=== PATIENT | female | born 1940 | race Caucasian/White ===

== ENCOUNTER 2017-12-09 11:13 | Inpatient (IN) | payer MEDICARE ==
[~2017-12-09] VITALS: Ht 152.4 cm; Wt 69.5 kg
[~2017-12-09 11:13] MED LIST: ASPIRIN325 MG PO; BENTYL20 MG PO; CATAPRES0.1 MG PO; COLESTIPOL HCL1 GM PO; FLEXERIL PO; FLUOROMETHOLONE5 ML OU; GLIMEPIRIDE4 MG PO; HYDROCHLOROTHIA25 MG PO; LANTUS100 UNITS/ SQ; LASIX40 MG PO; LOMOTIL TABLET1 EACH PO; LOVENOX60 MG/0.6 SC; METHYLDOPA500 MG PO; METOCLOPRAMIDE10 MG PO; METOPROLOL SUC100 MG PO; NITROSTAT0.4 MG SL; NORCO 5-325 TA1 EACH PO; OMEPRAZOLE20 MG PO; PHENERGAN PO; PLAVIX75 MG PO; POTASSIUM CHLO20 ME1 PO; PROCRIT20000 UNIT INJ; REGADENOSON 0.4 MG/5 ML SYR IV ONE; SODIUM CHLORIDE 0.9% 250ML 250 ML ONE; TEARS PURE DROP15 ML OU; VERAPAMIL ER120 MG PO; XANAX PO; phenergan PO
--- NOTE | 2017-12-09 12:03 | Diagnostic Imaging Report ---
PROCEDURE:CHEST SINGLE (PORTABLE) 1150 hrs. COMPARISON:Chest x-ray 03/31/2010 INDICATIONS:LOW BLOOD PRESSURE FINDINGS: LUNGS:Diffuse groundglass airspace opacities throughout each lung. The pulmonary vasculature are prominent. CARDIOMEDIASTINAL SILHOUETTE:Enlarged and contains a coronary artery stent. Calcifications of the aortic arch are stable PLEURA:No pleural effusion or pneumothorax.. BONES:Suggestion of a healed fracture deformity of the proximal right humerus. There is a curvilinear bone fragment in the superior joint space. OTHER:Negative. CONCLUSION: Cardiomegaly and pulmonary vascular congestion. Diffuse groundglass airspace opacities are suggestive of edema. Dictated by: Vamshi Hickman M.D. on 12/09/2017 at 12:13 Electronically approved by: Vamshi Hickman M.D. on 12/09/2017 at 12:13
[2017-12-09 12:24] LABS: INR 1.22; PROTHROMBIN TIME 14.5 seconds (11.9-14.5)
[2017-12-09 12:25] LABS: PARTIAL THROMBOPLASTIN TIME 30.9 seconds (23.8-35.5)
[2017-12-09 12:33] LABS: ALBUMIN 2.9 g/dL (3.5-5.0); ALBUMIN/GLOBULIN RATIO 0.8 (0.8-2.0); ANION GAP 15.3 mmol/L (8-16); CALCIUM 8.2 mg/dL (8.4-10.2); CREATININE, SERUM 1.28 mg/dL (0.57-1.11); POTASSIUM 4.3 mmol/L (3.5-5.1)
[2017-12-09] MEDS ORDERED: VERAPAMIL ER120 MG PO (12:37)
[2017-12-09] MEDS ORDERED: DICYCLOMINE HCL20 MG PO (12:37)
[2017-12-09] MEDS ORDERED: QUESTRAN PACKET4 GM PO (12:37)
[2017-12-09] MEDS ORDERED: FERROUS SULFAT325 M1 PO (12:37)
[2017-12-09] MEDS ORDERED: FUROSEMIDE40 MG PO (12:37)
[2017-12-09] MEDS ORDERED: HYDRALAZINE HCL25 MG PO (12:37)
[2017-12-09] MEDS ORDERED: ULTRAM50 MG PO (12:37)
[2017-12-09] MEDS ORDERED: CITALOPRAM HBR20 MG PO (12:37)
[2017-12-09 12:39] LABS: CREATINE KINASE MB 2.1 ng/mL (0.00-5.00)
[2017-12-09 12:48] LABS: BASOPHILS % 0.2 % (0.0-1.0); EOSINOPHILS % 0.2 % (0.0-6.0); HEMATOCRIT 29.2 % (34.2-44.1); HEMOGLOBIN 9.1 g/dL (12.0-16.0); LYMPHOCYTES % 11.1 % (18.0-39.1); MEAN CORPUSCULAR HEMOGLOBIN 33.2 pg (28-32); MEAN CORPUSCULAR HGB CONC 31.2 g/dL (31-35); MEAN CORPUSCULAR VOLUME 106.6 fL (81-99); MONOCYTES # (AUTO) 0.5 (0.2-0.8); MONOCYTES % 5.9 % (4.4-11.3); NEUTROPHILS # (AUTO) 7.5 (2.1-6.9); NEUTROPHILS % 82.1 % (38.7-80.0); PLATELET COUNT 170 x10e3/uL (140-360); RED BLOOD COUNT 2.74 x10e6/uL (3.6-5.1)
[2017-12-09 12:55] LABS: BILIRUBIN,URINE NEGATIVE (NEGATIVE); KETONES,URINE NEGATIVE (NEGATIVE); LEUKOCYTE ESTERASE ,URINE TRACE (NEGATIVE); NITRITE,URINE NEGATIVE (NEGATIVE); URINE UROBILINOGEN 0.2 mg/dL (0.2 - 1)
[2017-12-09 12:58] LABS: CLARITY,URINE CLEAR (CLEAR); COLOR,URINE YELLOW (YELLOW); PROTEIN,URINE DIPSTICK 2+ (NEGATIVE)
[2017-12-09 13:18] LABS: RBC,URINE 0-5 /HPF (0-5)
[2017-12-09 13:22] LABS: BACTERIA,URINE RARE /HPF; EPITHELIAL CELLS,URINE FEW /LPF
[2017-12-09 13:23] LABS: RENAL EPITHELIAL CELLS,URINE MODERATE
[2017-12-09] MEDS ORDERED: NITROGLYCERIN 2% OINT 1 GM PKT TOP ONE (13:30)
[2017-12-09] MEDS ORDERED: SODIUM CHLORIDE 0.9% 500ML 500 ML IV ONE (13:30)
--- NOTE | 2017-12-09 13:40 | Cardiology Report ---
DATE OF STUDY: December 09, 2017 NUCLEAR GATED MYOCARDIAL PERFUSION SCAN Thank you, Dr. Heard, for this nuclear interpretation consultation. The stress test was supervised by Dr. Félix Arellano. I read only the nuclear part of the stress test. Lexiscan injected 0.4 mg intravenously as a stress agent. Myoview was injected 10 millicuries for resting protocol and 33 millicuries for stress protocol. NUCLEAR REPORT: Left ventricular ejection fraction is 50% to 55%. No evidence of wall-motion abnormality noted. No evidence of ischemia or scar noted. Normal study. Job#: [id number]
[2017-12-09] MEDS ORDERED: FUROSEMIDE INJ 10 MG/ML 4 ML VIAL IV ONE ×2 (14:15)
[2017-12-09] MEDS ORDERED: DEXTROSE 50% SYRINGE 50 ML IV PRN ×2 (19:15→23:15)
[2017-12-09] MEDS ORDERED: CEFTRIAXONE SOD 1 GM VIAL IV SCH (19:15)
[2017-12-09] MEDS ORDERED: LEVOFLOXACIN 500 MG TAB PO SCH (19:30)
--- OUTSIDE RECORDS SUMMARY | 2017-12-09 20:22 | XMS REPORT ---
Author Author [facility] Address Unknown Phone Unavailable Care Team Providers Care Shopping Inspector Name Role Phone ALEM ABERNATHY Unavailable Unavailable Problems This patient has no known problems. Allergies, Adverse Reactions, Alerts This patient has no known allergies or adverse reactions. Medications This patient has no known medications. Results Test Description Test Time Test Comments Text Results Atomic Results Result Comments CHEST SINGLE (PORTABLE) [place] [address] Patient Name: YVONNE ZULETA MR #: [id number] : 1940 Age/Sex: 77/F Req #: [id number] Adm Physician: Ordered by: ALEM ABERNATHY MD Report #: [id number] Location: ER Room/Bed: Procedure: [id number] DX/CHEST SINGLE (PORTABLE) Exam Date: 12/09/17 Exam Time: 1130 REPORT STATUS: Signed PROCEDURE: CHEST SINGLE (PORTABLE) 1150 hrs. COMPARISON: Chest x-ray 03/31/2010 INDICATIONS: LOW BLOOD PRESSURE FINDINGS: LUNGS: Diffuse groundglass airspace opacities throughout each lung. The pulmonary vasculature are prominent. CARDIOMEDIASTINAL SILHOUETTE: Enlarged and contains a coronary artery stent. Calcifications of the aortic arch are stable PLEURA: No pleural effusion or pneumothorax.. BONES: Suggestion of a healed fracture deformity of the proximal right humerus. There is a curvilinear bone fragment in the superior joint space. OTHER: Negative. CONCLUSION: Cardiomegaly and pulmonary vascular congestion. Diffuse groundglass airspace opacities are suggestive of edema. Dictated by: Jesi Brown M.D. on 12/09/2017 at 12:13 Electronically approved by: Jesi Brown M.D. on 12/09/2017 at 12:13 Dictated By: JESI BROWN MD [id number] Transcribed By: ANDREE on 12/09/17 1213 COPY TO: ALEM ABERNATHY MD
--- OUTSIDE RECORDS SUMMARY | 2017-12-09 20:22 | XMS REPORT | Clinical Summary ---
Author Author [facility] Address Unknown Phone Unavailable Care Team Providers Care Cupola Patcher Name Role Phone PCP Unavailable Allergies Active Allergy Reactions Severity Noted Date Comments Tiago Inhibitors High 04/03/2016 Amlodipine High 04/03/2016 Hydralazine High 04/03/2016 Meperidine High 04/03/2016 Morpholine Analogues High 04/03/2016 Penicillins High 04/03/2016 Current Medications Prescription Sig. Disp. Refills Start End Date Status Date dicyclomine (BENTYL) 20 Take 20 mg by mouth 4 Active mg tablet (four) times daily. metoclopramide HCl Take 10 mg by mouth 2 Active (REGLAN) 10 MG tablet (two) times daily. omeprazole (PRILOSEC) 40 Take 40 mg by mouth 2 Active MG capsule (two) times daily. colestipol (COLESTID) 5 Take 5 g by mouth 2 (two) Active gram granules times daily. aspirin 325 MG EC tablet Take 325 mg by mouth Active daily. cloNIDine HCl (CATAPRES) Take 0.1 mg by mouth 2 Active 0.1 MG tablet (two) times daily. metoprolol (LOPRESSOR) 50 Take 50 mg by mouth 3 Active MG tablet (three) times daily. potassium chloride SA Take 20 mEq by mouth 2 Active (K-DUR,KLOR-CON) 20 MEQ (two) times daily. tablet verapamil (CALAN) 40 MG Take 40 mg by mouth 2 Active tablet (two) times daily. furosemide (LASIX) 40 MG Take 40 mg by mouth 2 Active tablet (two) times daily. clopidogrel (PLAVIX) 75 Take 75 mg by mouth Active mg tablet daily. methyldopa (ALDOMET) 500 Take 500 mg by mouth 2 Active MG tablet (two) times daily. ALPRAZolam (XANAX) 0.25 Take 0.25 mg by mouth 3 Active MG tablet (three) times daily as needed for Anxiety. glimepiride (AMARYL) 4 MG Take 4 mg by mouth 2 Active tablet (two) times daily. diphenoxylate-atropine Take 1 tablet by mouth 4 Active (LOMOTIL) 2.5-0.025 mg (four) times daily as per tablet needed for Diarrhea. HYDROcodone-acetaminophen Take 1 tablet by mouth Active (VICODIN) 5-500 mg per every 6 (six) hours as tablet needed for Pain "25 mg" . promethazine (PHENERGAN) Take 25 mg by mouth as Active 25 MG tablet needed for Nausea. insulin glargine (LANTUS) Inject 40 Units Active 100 unit/mL injection subcutaneously nightly Use as directed. Takes if glucose over 125. States does not check sugar. . fluorometholone (FML) 0.1 1 drop 4 (four) times Active % ophthalmic suspension daily. Active Problems Problem Noted Date CAD (coronary artery disease) 04/05/2016 Angina at rest (HCC) 04/03/2016 SOB (shortness of breath) 04/03/2016 DM (diabetes mellitus) ([facility]) Social History Tobacco Use Types Packs/Day Years Used Date Never Smoker Alcohol Use Drinks/Week oz/Week Comments No Sex Assigned at Date Recorded Not on file Last Filed Vital Signs Not on file Plan of Treatment Not on file Implants Implanted Type Area It Intern Device Expiration Model / Identifier Date Serial / Lot Jose MALDONADO 02/11/2017 [id number] Implanted: Qty: 1 on 04/05/2016 [employer] 0250 / / [id number] Results Not on fileafter 12/08/2016
[2017-12-09 20:23] LABS: CREATINE KINASE MB 1.6 ng/mL (0.00-5.00)
[2017-12-10] VITALS (8 sets, daily range): BP systolic 162–200; BP diastolic 73–90
[2017-12-10 06:25] LABS: BASOPHILS % 0.4 % (0.0-1.0); EOSINOPHILS # (AUTO) 0.1 (0.0-0.4); EOSINOPHILS % 1.6 % (0.0-6.0); HEMATOCRIT 27.5 % (34.2-44.1); HEMOGLOBIN 9.1 g/dL (12.0-16.0); LYMPHOCYTES # (AUTO) 1.5 (1.0-3.2); LYMPHOCYTES % 34.1 % (18.0-39.1); MEAN CORPUSCULAR HEMOGLOBIN 33.8 pg (28-32); MEAN CORPUSCULAR HGB CONC 33.1 g/dL (31-35); MEAN CORPUSCULAR VOLUME 102.2 fL (81-99); MONOCYTES # (AUTO) 0.5 (0.2-0.8); MONOCYTES % 11.5 % (4.4-11.3); NEUTROPHILS # (AUTO) 2.3 (2.1-6.9); PLATELET COUNT 165 x10e3/uL (140-360); RED BLOOD COUNT 2.69 x10e6/uL (3.6-5.1)
[2017-12-10 06:55] LABS: CALCIUM 9.4 mg/dL (8.4-10.2); CREATININE, SERUM 1.34 mg/dL (0.57-1.11)
[2017-12-10] MEDS: INSULIN REGULAR, HUMAN 100 UNIT/1 ML 3ML VIAL SQ SCH ×4 (07:30→21:25)
[2017-12-10 07:54] LABS: CREATINE KINASE MB 1.2 ng/mL (0.00-5.00)
[2017-12-10] MEDS: FUROSEMIDE INJ 10 MG/ML 4 ML VIAL IV SCH ×2 (08:36→17:36)
[2017-12-10] MEDS ORDERED: TRAMADOL HCL 50 MG TAB PO PRN (10:00)
[2017-12-10] MEDS ORDERED: ARTIFICIAL TEARS (OPTH) 15 ML BTL OU PRN (10:00)
[2017-12-10] MEDS ORDERED: NITROGLYCERIN 0.4 MG SUBL SL PRN (10:00)
--- NOTE | 2017-12-10 11:40 | History and Physical ---
ATTENDING PHYSICIANS: Dr. Chau, Dr. Arellano, and Dr. Salgado. 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 Has been under evaluation for wounds on left plantar aspect of the right foot. She is said to have blocked arteries. She has history of hypertension, insulin-dependent diabetes, anemia of chronic disease, coronary artery disease with stents dating back 12 years, peripheral vascular disease. She has had for hernia operation, a julio placed in the left foot for stress fracture, gallbladder surgery, and hysterectomy. FAMILY HISTORY: Positive coronary artery disease and diabetes. SOCIAL HISTORY: She never smoked or drank. Retired RN. MEDICATIONS: At home are numerous including Lasix, Calan, Apresoline, Celexa, tramadol, iron, Flexeril, Amaryl, insulin, Bentyl, Plavix, potassium, clonidine, Aldomet, Lopressor, Xanax, Prilosec, Reglan, nitroglycerin, and Questran. 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 PHYSICAL EXAMINATION GENERAL: She is a well-developed white female looking somewhat older than stated age. VITAL SIGNS: Temperature 98.8, pulse 87, respirations 17, and blood pressure 189/70. HEENT: Head normocephalic AND atraumatic. Blind left eye. CARDIOVASCULAR: Heart regular rhythm. RESPIRATORY: Bilateral rales. ABDOMEN: Nontender. EXTREMITIES: Hammer toes and callus noted to great plantar aspect of foot. IMPRESSION: Congestive heart failure, pulmonary fibrosis seems unlikely. PLAN: Diuresis, therapy of diabetes, coronary disease, and hypertension. Attempt to simplify her regimen if at all possible. She has been started by the emergency room doctor on Levaquin presumably for therapy of urinary infection. We will discuss with Dr. Arellano. Thank you for this kind referral. Job#: [id number] SANGEETHA
[2017-12-10] MEDS: DICYCLOMINE HCL 20 MG TAB PO SCH ×3 (14:00→21:24)
[2017-12-10] MEDS: FLUOROMETHOLONE 0.1% OPTHMALMIC SUSP 5 ML BTL OP SCH ×3 (14:00→21:24)
[2017-12-10] MEDS: INSULIN DETEMIR 100 UNIT/ML PEN SQ SCH (16:19)
[2017-12-10] MEDS ORDERED: HYDRALAZINE HCL 25 MG TAB PO SCH (17:00)
[2017-12-10] MEDS: CHOLESTYRAMINE 4 GM PACKET PO SCH (17:37)
--- NOTE | 2017-12-10 19:28 | Diagnostic Imaging Report ---
PROCEDURE: Frontal and lateral views of the chest. COMPARISON: Patients [facility], , CHEST SINGLE (PORTABLE), 12/09/2017, 11:50. INDICATIONS: CONGESTIVE HEART FAILURE FINDINGS: Lines/tubes: None. Lungs: Lungs are well inflated and grossly clear. No consolidation or pulmonary edema. Pleura: There is no pleural effusion or pneumothorax. Heart and mediastinum: Stable enlarged cardiac silhouette. Atherosclerotic calcification of the aorta Bones: No acute bony abnormality. IMPRESSION: 1. stable enlargement of the cardiac silhouette, without acute cardiopulmonary disease. Luis Fernando Sloan M.D. Dictated by: Luis Fernando Sloan M.D. on 12/10/2017 at 19:27 Electronically approved by: Luis Fernando Sloan M.D. on 12/10/2017 at 19:27
[2017-12-10] MEDS: LEVOFLOXACIN 500MG/D5W 100ML 100 ML IV SCH (21:24)
[2017-12-10] MEDS: HEPARIN SOD (PORCINE) 5,000 UNIT/ML VIAL SC SCH (21:25)
[2017-12-10] MEDS: CLONIDINE HCL 0.1 MG TAB PO PRN (21:26)
[2017-12-11] VITALS (10 sets, daily range): BP systolic 88–187; BP diastolic 48–101
--- NOTE | 2017-12-11 01:54 | Consultation ---
DATE OF CONSULTATION: December 11, 2017 HPI: This 77-year-old patient was admitted by Dr. Baca after she went to the emergency room following pharmacological stress test and chest x-ray was interpreted as congestive heart failure. The patient has callus formation on the plantar portion of her foot with some nonhealing wounds on her right foot and was sent to a vascular surgeon who told the patient that she will need angiography and intervention. I have seen the patient for over 20 years and she then called my office and explained the situation and canceled her appointment with the vascular surgeon. However, I told the patient that if she will need surgery she will need cardiac clearance as it was also requested and she came in for pharmacologic stress test on December 09, 2017. In the past, the patient has been seen mainly for uncontrolled hypertension; however, on arrival to the stress lab, her blood pressure has been between 85 and 90. The patient has been asymptomatic. However, she tells me that her blood pressure usually gets in this range every day after she takes her morning medication and then gets elevated during the night and in the evening. The patient also reports low blood sugar in the morning in the range of 70. She takes 8 units of Lantus in the afternoon the day before. The patient then indicated that she wanted to proceed with the study which was initiated. There were no EKG changes and no arrhythmias noted; however, the patient's blood pressure was unstable, ranging from 75 to 95 despite receiving 500 mL of normal saline intravenously. Since the patient has taken only antihypertensive medication earlier, she was then advised to go to the emergency room to be evaluated and treated until her blood pressure stabilizes. The patient also had quite an extended reaction to the Lexiscan which is medication utilized for the test, mainly with nausea and shortness of breath, which did not respond to 4 mg of Zofran IV and this was another reason the patient was told to be observed. However, as mentioned, her chest x-ray was interpreted as congestive heart failure and therefore the patient was admitted through the intermediate care unit. At the moment, the patient is comfortable, having some mild cough and low-grade fever. She was also told to have a urinary tract infection and received Levaquin in the emergency room for the UTI. Repeat chest x-ray has been ordered by Dr. Baca, but apparently has not been performed yet. PAST HISTORY: Significant that she has coronary artery disease with coronary artery stenting mainly involving the LAD and first diagonal branch. She also has malignant , insulin-dependent diabetes mellitus, anemia of chronic disease and is seeing Dr. Mcconnell. The patient also had gallbladder surgery, hysterectomy, stress fracture in her left foot with placement of a julio, and hernia repair. More recently, the patient also developed some chronic kidney disease stage 2 to 3 and has seen pipe crew foreman who told her to follow a low-sodium diet without any other instruction according to the patient. FAMILY HISTORY: Positive for diabetes and CAD. REVIEW OF SYSTEMS: The remainder of systems reviewed, revealed that patient denies any headache or sore throat. The patient denies any chest pain. She denies any abdominal pain, nausea or vomiting. The patient denies any leg pain. PHYSICAL EXAMINATION VITAL SIGNS: Blood pressure 190/76. NECK: Carotid pulses are present. CHEST: Clear to auscultation. CARDIOVASCULAR SYSTEM: Revealed apical impulse. Rhythm is regular. First and second are normal. There is no S3. ABDOMEN: Soft. There is no tenderness and no organomegaly. EXTREMITIES: Pedal pulses could not be palpated. Hammertoes, callus and blisters on the right foot were noted. IMPRESSIONS 1. Coronary atherosclerotic and hypertensive cardiovascular disease. 2. Diabetes mellitus with diabetic neuropathy. 3. Chronic kidney disease. 4. Anemia of chronic disease. 5. Gastroesophageal reflux disease. 6. Anxiety and nervousness. 7. Hyperlipidemia. 8. Blindness. 9. Urinary tract infection. PLAN: I agree with the present excellent management and I would recommend to resume home medications and follow up with a PA and lateral chest x-ray. Since there is a question of congestive heart failure with negative pharmacological stress test, I would recommend to also obtain echocardiogram to see if the patient may had diastolic congestive heart failure or any valvular heart disease not recognizable on physical examination. Thank you very much for letting me to see this very nice patient. Job#: [id number] CF cc:SANDRA LEONE M.D.
--- NOTE | 2017-12-11 06:01 | Diagnostic Imaging Report ---
CHEST SINGLE (PORTABLE), 12/11/2017 7:00 AM Technique: CHEST SINGLE (PORTABLE) Comparison: 12/10/2017 Clinical history: CHF Findings: Heart/mediastinum: Stable mildly enlarged Lungs/pleural spaces: No consolidation or edema. No effusion or pneumothorax. Impression: 1. Lines/Tubes: None 2. No acute abnormality. Signed by: Dr Wilda Wagner MD on 12/11/2017 5:58 AM
[2017-12-11] MEDS: CLONIDINE HCL 0.1 MG TAB PO PRN (06:17)
[2017-12-11 06:57] LABS: BASOPHILS % 0.2 % (0.0-1.0); EOSINOPHILS # (AUTO) 0.1 (0.0-0.4); EOSINOPHILS % 1.2 % (0.0-6.0); HEMATOCRIT 32.5 % (34.2-44.1); HEMOGLOBIN 10.3 g/dL (12.0-16.0); LYMPHOCYTES # (AUTO) 1.5 (1.0-3.2); LYMPHOCYTES % 28.7 % (18.0-39.1); MEAN CORPUSCULAR HEMOGLOBIN 32.7 pg (28-32); MEAN CORPUSCULAR HGB CONC 31.7 g/dL (31-35); MEAN CORPUSCULAR VOLUME 103.2 fL (81-99); MONOCYTES # (AUTO) 0.5 (0.2-0.8); MONOCYTES % 10.7 % (4.4-11.3); NEUTROPHILS % 58.6 % (38.7-80.0); PLATELET COUNT 187 x10e3/uL (140-360); RED BLOOD COUNT 3.15 x10e6/uL (3.6-5.1)
[2017-12-11 07:27] LABS: ANION GAP 13.9 mmol/L (8-16); CALCIUM 9.8 mg/dL (8.4-10.2); CREATININE, SERUM 1.68 mg/dL (0.57-1.11); POTASSIUM 3.9 mmol/L (3.5-5.1)
[2017-12-11] MEDS: CLOPIDOGREL BISULFATE 75 MG TAB PO SCH (08:36)
[2017-12-11] MEDS: POTASSIUM CHLORIDE 20 MEQ TAB CR PO SCH (08:36)
[2017-12-11] MEDS: FUROSEMIDE INJ 10 MG/ML 4 ML VIAL IV SCH (08:36)
[2017-12-11] MEDS: DICYCLOMINE HCL 20 MG TAB PO SCH ×4 (08:36→21:22)
[2017-12-11] MEDS: CITALOPRAM HYDROBROMIDE 20 MG TAB PO SCH (08:36)
[2017-12-11] MEDS: FLUOROMETHOLONE 0.1% OPTHMALMIC SUSP 5 ML BTL OP SCH ×4 (08:36→21:27)
[2017-12-11] MEDS: PANTOPRAZOLE SOD 40 MG TABEC PO SCH (08:36)
[2017-12-11] MEDS: CHOLESTYRAMINE 4 GM PACKET PO SCH ×2 (08:37→17:00)
[2017-12-11] MEDS: HYDRALAZINE HCL 25 MG TAB PO SCH ×3 (08:51→21:27)
[2017-12-11] MEDS: HEPARIN SOD (PORCINE) 5,000 UNIT/ML VIAL SC SCH ×2 (08:52→21:24)
[2017-12-11] MEDS: INSULIN REGULAR, HUMAN 100 UNIT/1 ML 3ML VIAL SQ SCH ×4 (08:54→21:00)
[2017-12-11] MEDS ORDERED: VERAPAMIL HCL 180 MG TBER PO SCH (09:00)
[2017-12-11] MEDS ORDERED: METOPROLOL SUCCINATE 50 MG TAB XL PO SCH (09:00)
[2017-12-11] MEDS ORDERED: PROMETHAZINE HCL 25 MG TAB PO PRN (10:00)
[2017-12-11 10:11] LABS: % IRON SATURATION 21 % (15-50); IRON 75 ug/dL (50-170); TOTAL IRON BINDING CAPACITY 353 ug/dL (261-478); TRANSFERRIN 252 mg/dL (180-382)
[2017-12-11] MEDS: INSULIN DETEMIR 100 UNIT/ML PEN SQ SCH (17:11)
[2017-12-11] MEDS ORDERED: TERAZOSIN HCL 1 MG CAP PO SCH (21:00)
[2017-12-11] MEDS ORDERED: HYDRALAZINE HCL 25 MG TAB PO SCH (21:00)
[2017-12-11] MEDS: LEVOFLOXACIN 500MG/D5W 100ML 100 ML IV SCH (21:22)
[2017-12-12] VITALS (8 sets, daily range): BP systolic 139–175; BP diastolic 58–90
[2017-12-12] MEDS: HYDRALAZINE HCL 25 MG TAB PO SCH ×2 (05:10→14:35)
[2017-12-12] MEDS ORDERED: FUROSEMIDE INJ 10 MG/ML 4 ML VIAL IV SCH ×2 (07:30)
[2017-12-12] MEDS: INSULIN REGULAR, HUMAN 100 UNIT/1 ML 3ML VIAL SQ SCH ×4 (08:00→20:48)
[2017-12-12] MEDS: PANTOPRAZOLE SOD 40 MG TABEC PO SCH (08:36)
[2017-12-12] MEDS: HEPARIN SOD (PORCINE) 5,000 UNIT/ML VIAL SC SCH (08:36)
[2017-12-12] MEDS: CLOPIDOGREL BISULFATE 75 MG TAB PO SCH (08:36)
[2017-12-12] MEDS: CHOLESTYRAMINE 4 GM PACKET PO SCH ×2 (08:36→17:00)
[2017-12-12] MEDS: CITALOPRAM HYDROBROMIDE 20 MG TAB PO SCH (08:36)
[2017-12-12] MEDS: DICYCLOMINE HCL 20 MG TAB PO SCH ×4 (08:36→20:48)
[2017-12-12] MEDS: POTASSIUM CHLORIDE 20 MEQ TAB CR PO SCH (08:38)
[2017-12-12] MEDS: FLUOROMETHOLONE 0.1% OPTHMALMIC SUSP 5 ML BTL OP SCH ×4 (09:00→20:48)
[2017-12-12 09:52] LABS: THYROID STIMULATING HORMONE 2.141 uIU/mL (0.350-4.940)
[2017-12-12] MEDS: METOPROLOL SUCCINATE 50 MG TAB XL PO SCH (12:33)
[2017-12-12] MEDS: INSULIN DETEMIR 100 UNIT/ML PEN SQ SCH (16:30)
[2017-12-12] MEDS ORDERED: VERAPAMIL HCL 180 MG TBER PO SCH (17:00)
[2017-12-12] MEDS: LEVOFLOXACIN 500MG/D5W 100ML 100 ML IV SCH (20:48)
[2017-12-13 05:06] VITALS: BP_SYST 112; BP_SYST 153; BP_DIAS 69; BP_DIAS 81
[2017-12-13] MEDS: INSULIN REGULAR, HUMAN 100 UNIT/1 ML 3ML VIAL SQ SCH ×2 (07:30→12:55)
[2017-12-13] MEDS ORDERED: MIDODRINE 2.5 MG TAB PO SCH (08:00)
[2017-12-13 08:02] LABS: ANION GAP 14.2 mmol/L (8-16); CREATININE, SERUM 1.77 mg/dL (0.57-1.11); POTASSIUM 4.2 mmol/L (3.5-5.1)
[2017-12-13 08:04] LABS: CALCIUM 8.2 mg/dL (8.4-10.2)
[2017-12-13 08:48] VITALS: BP 166/79
[2017-12-13] MEDS: CHOLESTYRAMINE 4 GM PACKET PO SCH (09:00)
[2017-12-13] MEDS: FLUOROMETHOLONE 0.1% OPTHMALMIC SUSP 5 ML BTL OP SCH ×2 (09:36→12:55)
[2017-12-13] MEDS: MIDODRINE HCL 5 MG TABLET PO SCH ×2 (09:36→12:55)
[2017-12-13] MEDS: PANTOPRAZOLE SOD 40 MG TABEC PO SCH (09:36)
[2017-12-13] MEDS: DICYCLOMINE HCL 20 MG TAB PO SCH (09:36)
[2017-12-13] MEDS: CLOPIDOGREL BISULFATE 75 MG TAB PO SCH (09:36)
[2017-12-13] MEDS ORDERED: CLONIDINE HCL0.1 MG PO ×3 (10:06→12:12)
[2017-12-13] MEDS ORDERED: MIDODRINE HCL2.5 MG PO ×3 (10:06→12:12)
[2017-12-13] MEDS: METOPROLOL SUCCINATE 50 MG TAB XL PO SCH (12:55)
[2017-12-13 13:00] VITALS: BP 162/74
--- NOTE | 2017-12-13 13:17 | Discharge Summary ---
A patient of Dr. Chau, Dr. Arellano. 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 Patient's daughter relates that she does get weak and dizzy when she stands up and was found to have significant orthostatic hypotension. She has a history of diabetes with peripheral neuropathy and apparent autonomic dysfunction. She developed pulmonary edema after her stress test, which resolved with Lasix by report. The PACS system was not functioning, and I was unable to review the x-rays themselves. The patient gradually improved. Her medications were adjusted. On discharge her blood pressure was 140/70 lying and 117/61 standing. She was advised to use a walker. This was felt to be the best result we could obtain. Choices on the automatic prescription EMR did not correspond to the actual drugs that she needed, and she was given separate prescriptions. Her clonidine 0.1 mg to be taken 4 times a day and midodrine 5 mg to be taken 3 times a day. Also continue her Questran, Celexa, Plavix, eyedrops, dicyclomine, the Dextran eyedrops and the fluorometholone eyedrops. Amaryl 4 mg, Lantus insulin 10, metoprolol 50 mg b.i.d., nitroglycerin as needed, omeprazole 20 mg b.i.d., tramadol 50 mg q.6 p.r.n. pain, verapamil ER 180 mg daily, and Xanax 0.25 mg p.r.n. Her Lasix was held. Her iron was held. Her Apresoline was held. Her Aldomet was held. Her Reglan was held. Her potassium was held. Her Flexeril and her Phenergan were also held. She was advised to use a walker. She was advised to follow up with Dr. Arellano and Dr. Chau. Her TSH was 2.14. Her hemoglobin was 10.3 with macrocytic anemia, was felt to be anemia of chronic disease. This has been evaluated in the past. Her iron was 75, TIBC 353. Moderate elevation of her liver function was noted. BNP was 170. Pulmonary edema resolved. Will be followed by her daughter at home and by Dr. Chau. Thank you for this kind referral. Job#: [id number] EV
[2017-12-27] MEDS ORDERED: TEARS OP (10:33)
[2017-12-27] MEDS ORDERED: EMLA TOP (10:33)
[2017-12-27] MEDS ORDERED: METOPROLOL TART50 MG PO (10:33)
== END 2017-12-13 13:07 | disposition home health service (06) | DRG 291 ==
LOC: ER 11:13 → ERHOLD 20:19 → IMCU 23:37 → OBSVTOIN 12-12 17:47 → MED/SURG3 12-12 21:45
PROVIDERS: ADMIT Internal Medicine Pulmonary Disease; ATTEND Internal Medicine Pulmonary Disease
DX: I13.0 Hypertensive heart and chronic kidney disease with heart failure and stage 1 through stage 4 chronic kidney disease, or unspecified chronic kidney disease (principal); I50.31 Acute diastolic (congestive) heart failure; E11.22 Type 2 diabetes mellitus with diabetic chronic kidney disease; E11.43 Type 2 diabetes mellitus with diabetic autonomic (poly)neuropathy; N39.0 Urinary tract infection, site not specified; I95.2 Hypotension due to drugs; I25.10 Atherosclerotic heart disease of native coronary artery without angina pectoris; D63.1 Anemia in chronic kidney disease; F41.9 Anxiety disorder, unspecified; K21.9 Gastro-esophageal reflux disease without esophagitis; N18.3 Chronic kidney disease, stage 3 (moderate); Z79.4 Long term (current) use of insulin; M20.40 Other hammer toe(s) (acquired), unspecified foot; R23.8 Other skin changes; Z95.5 Presence of coronary angioplasty implant and graft; E11.319 Type 2 diabetes mellitus with unspecified diabetic retinopathy without macular edema
CPT/HCPCS: 36415; 71045; 71046; 78452; 80048; 80053; 81001; 82044; 82550; 82553; 82948; 83036; 83540; 83880; 84436; 84443; 84466; 84479; 84484; 85025; 85610; 85730; 87086; 93005; 93017; 93306; 96372; 96376; 99284; A9502; G0378; J1644; J1940; J1956; J7050

== ENCOUNTER 2018-01-01 07:06 | Observation (INO) | payer MEDICARE ==
[2018-01-01] VITALS (21 sets, daily range): BP systolic 128–211; BP diastolic 59–91
[~2018-01-01] VITALS: Ht 152.4 cm; Wt 73.5 kg
[~2018-01-01 07:06] MED LIST changes: +CITALOPRAM HBR20 MG PO; +CLONIDINE HCL0.1 MG PO; +DICYCLOMINE HCL20 MG PO; +EMLA TOP; +FENTANYL CITRATE/PF 100MCG/2 ML INJ ONE; +FERROUS SULFAT325 M1 PO; +FUROSEMIDE40 MG PO; +HEPARIN SOD/SOD CHLORIDE 1,000 ML ONE; +HYDRALAZINE HCL25 MG PO; +IOPAMIDOL 300MG/ML 100 ML INFUS..BTL IV ONE; +LIDOCAINE HCL 2% LOCAL 20 ML VIAL ONE; +METOPROLOL TART50 MG PO; +MIDAZOLAM HCL 2 MG/2 ML VIAL ONE; +MIDODRINE HCL2.5 MG PO; +QUESTRAN PACKET4 GM PO; -REGADENOSON 0.4 MG/5 ML SYR IV ONE; +SODIUM CHLORIDE 0.9% 1000ML 1,000 ML ONE; -SODIUM CHLORIDE 0.9% 250ML 250 ML ONE; +TEARS OP; +ULTRAM50 MG PO
--- OUTSIDE RECORDS SUMMARY | 2018-01-01 07:08 | XMS REPORT | Continuity of Care Document ---
Author Author [facility] Organization [facility] Address [address] [place] [address] Phone Unavailable Care Team Providers Care Making Department Preparer Name Role Phone IVANA JUDD MD PCP Insurance Providers Guarantor Yvonne Zuleta Address [address] [place] [address] Email N Payer [facility] Policy Number [id number] Subscriber's Name Yvonne Zuleta Relationship 18 Self / Same As Patient Group Number PLAN [id number] Group Name UNEMPLOYED Effective Date 17 Payer Medicare A & B Policy Number [id number] Subscriber's Name Yvonne Zuleta Relationship 18 Self / Same As Patient Group Number [id number] Group Name UNEMPLOYED Effective Date 00 Advance Directives Directive Response Recorded Date/Time Does the patient have an advance directive? No 12/09/17 11:45pm If yes, is advance directive on file with [facility]? No 12/09/17 11:45pm If not on file with [facility] will patient provide a copy? No 12/09/17 11:45pm Do you have a Directive to Physician? No 12/09/17 7:19am Do you have a Medical Power of Procedure Writer? No 12/09/17 7:19am Do you have an out of hospital Do Not Resuscitate Order? No 12/09/17 7:19am Do you have any special needs we should be aware of? No 12/09/17 7:19am Do you have a support person here with you today? Yes 12/09/17 7:19am Did patient receive Notice of Privacy Practices? Yes 12/09/17 7:19am Did patient receive patient rights and responsibilities? Yes 12/09/17 7:19am Problems No problem information available. Medications Current Home Medications Medication Dose Units Route Directions Days Qty Instructions Start Date Cholestyramine (With Sugar) (Questran Packet) 4 Gm Packet 9 Gm Oral Twice A Day Citalopram Hydrobromide (Citalopram Hbr) 20 Mg Tablet 10 Mg Oral Daily Clonidine Hcl 0.1 Mg Tablet 1 Tab Oral Every 6 Hours 60 Tab Clopidogrel Bisulfate (Plavix) 75 Mg Tablet 75 Mg Oral Daily Dextran 70/Hypromellose (Tears Pure Drops) 15 Ml Drops 1 Drop Each Eye As Needed as needed for Dry Eye Dicyclomine Hcl (Bentyl) 20 Mg Tablet 20 Mg Oral Three Times A Day Fluorometholone 5 Ml Drops.susp 1 Drop Each Eye Four Times Daily Glimepiride 4 Mg Tablet 4 Mg Oral Daily Insulin Glargine (Lantus) 100 Units/Ml Ml 10 Units Sub-Q Hsprn Metoprolol Succinate 100 Mg Tab.er.24h 100 Mg Oral 1/2BID Midodrine Hcl 2.5 Mg Tablet 5 Mg Oral Three Times A Day Nitroglycerin (Nitrostat) 0.4 Mg Tab.subl 0.4 Mg Sublingual As Needed as needed for Chest Pain Omeprazole 20 Mg Capsule.dr 20 Mg Oral Twice A Day Tramadol Hcl (Ultram) 50 Mg Tablet 50 Mg Oral Every 6 Hours as needed for Pain Verapamil Hcl (Verapamil Er) 120 Mg Cap24h.pel 180 Mg Oral Daily Xanax 0.25 Mg Oral As Needed Past Home Medications Medication Directions Ordered Status Aspirin 325 Mg Tablet, 325 Mg Oral Daily Discontinued Clonidine Hcl 0.1 Mg Tablet, 1 Tab Oral Every 6 Hours Discontinued Clonidine Hcl (Catapres) 0.1 Mg Tablet, 0.1 Mg Oral Daily Discontinued Colestipol Hcl,Micronized (Colestipol Hcl) 1 Gm Tablet, 1 Gm Oral Daily Discontinued Dicyclomine Hcl 20 Mg Tablet, 20 Mg Oral Four Times Daily Discontinued Diphenoxylate Hcl/Atropine (Lomotil Tablet) 1 Each Tablet, 1 Tab Oral Three Times A Day Discontinued Diphenoxylate Hcl/Atropine (Lomotil Tablet) 1 Each Tablet, 2.5 Mg Oral As Needed Discontinued Enoxaparin Sodium (Lovenox) 60 Mg/0.6 Ml Inj, 60 Mg Subcutaneously Today At 5: 00PM Discontinued Epoetin Molina (Procrit) 20,000 Unit/1 Ml Vial, 29584 Units Injection Wkly Discontinued Ferrous Sulfate 325 Mg Tablet.dr, 1 Tab Oral Twice A Day Discontinued Flexeril , 10 Mg Oral Three Times A Day Discontinued Furosemide 40 Mg Tablet, 40 Mg Oral Daily Discontinued Furosemide (Lasix) 40 Mg Tablet, 40 Mg Oral Daily Discontinued Hydralazine Hcl 25 Mg Tab, 50 Mg Oral Twice A Day Discontinued Hydrochlorothiazide 25 Mg Tablet, 12.5 Mg Oral Daily Discontinued Hydrocodone Bit/Acetaminophen ([place] 5-325 Tablet) 1 Each Tablet, Oral As Needed Discontinued Methyldopa 500 Mg Tablet, 500 Mg Oral Twice A Day Discontinued Metoclopramide Hcl 10 Mg Tablet, 10 Mg Oral Four Times Daily Discontinued Midodrine Hcl 2.5 Mg Tablet, 5 Mg Oral Three Times A Day Discontinued Phenergan , 25 Mg Oral As Needed Discontinued Phenergan , 25 Mg Oral As Needed Discontinued Potassium Chloride 20 Meq Tab.er.prt, 20 Mg Oral Daily Discontinued Verapamil Hcl (Verapamil Er) 120 Mg Cap24h.pel, 40 Mg Oral Daily Discontinued Family History Relationship Condition Age at Onset Recorded Date/Time 09 Brother Family history of diabetes mellitus Not Recorded 12/10/2017 1: 05am 18 Daughter Family history of acute myocardial infarction Not Recorded 12/10 1:05am 33 Father Family history of acute myocardial infarction Not Recorded 2017 1:05am 32 Mother Family history of diabetes mellitus Not Recorded 12/10/2017 1:05am 09 Sister Family history of diabetes mellitus Not Recorded 12/10/2017 1:05am Social History Social History Problem Response Recorded Date/Time Onset Date Status Hx Psychiatric Problems No 12/09/2017 11:45pm Not Applicable Not Applicable Hx Eating Disorder No 12/09/2017 11:45pm Not Applicable Not Applicable Hx Substance Use Disorder No 12/09/2017 11:45pm Not Applicable Not Applicable Hx Depression No 12/09/2017 11:45pm Not Applicable Not Applicable Hx Alcohol Use No 12/09/2017 11:45pm Not Applicable Not Applicable Hx Substance Use Treatment No 12/09/2017 11:45pm Not Applicable Not Applicable Hx Physical Abuse No 12/09/2017 11:45pm Not Applicable Not Applicable Smoking Status Start Date Stop Date Never Smoker Hospital Discharge Instructions No hospital discharge instruction information available. Plan of Care Discharge Date 12/13/17 1:07pm Disposition HOME HEALTH SERVICE Instructions/Education Provided Fall Prevention Prescriptions See Medication Section Referrals jamin (Cardiology) Entered Date: 12/13/2017 10:09am Additional Instructions/Education Diabetic diet Please sit at edge of bed or chair for a few minutes before standing. Be sure to use your walker each time Follow up with PCP in 1-2 weeks Functional Status Query Response Date Recorded FUNCTIONAL STATUS . December 10, 2017 11:58am Toileting Ability Independent December 12, 2017 2:12pm Allergies, Adverse Reactions, Alerts Allergen Type Severity Reaction Status Last Updated Penicillin Allergy Mild RASH/WILD Active 02/22/13 Cephalexin Allergy Mild RASH/WILD Active 02/22/13 Meperidine Allergy Mild RASH/WILD Active 02/22/13 Immunizations No immunization information available. Vital Signs Acute Vital Signs Vital Response Date/Time Temperature (Fahrenheit) 98.8 degrees F (97.6 - 99.5) 12/13/2017 1:00pm Pulse Pulse Rate (adult) 70 bpm (60 - 90) 12/13/2017 1:00pm Respiratory Rate 18 bpm (12 - 24) 12/13/2017 1:00pm Blood Pressure 162/74 mm Hg 12/13/2017 1:00pm Height 5 ft 0 in 12/09/2017 11:14am Weight 153.19 lb 12/12/2017 10:42pm Body Mass Index 29.9 kg/m^2 12/12/2017 10:42pm Results Laboratory Results Test Name Result Units Flags Reference Collection Date/Time Result Date/ Time Comments White Blood Count 5.06 x10e3/uL 4.8-10.8 12/11/2017 6:12/11/2017 7 :01am Red Blood Count 3.15 x10e6/uL L 3.6-5.1 12/11/2017 6:12/11/2017 7: 01am Hemoglobin 10.3 g/dL L 12.0-16.0 12/11/2017 6:12/11/2017 7:01am Hematocrit 32.5 % L 34.2-44.1 12/11/2017 6:12/11/2017 7:01am Mean Corpuscular Volume 103.2 fL H 81-99 12/11/2017 6:12/11/2017 7: 01am Mean Corpuscular Hemoglobin 32.7 pg H 28-32 12/11/2017 6:2017 7:01am Mean Corpuscular Hemoglobin Concent 31.7 g/dL 31-35 12/11/2017 6:12/11/2017 7:01am Red Cell Distribution Width 12.0 % 11.7-14.4 12/11/2017 6:2017 7:01am Platelet Count 187 x10e3/uL 140-360 12/11/2017 6:12/11/2017 7: 01am Neutrophils (%) (Auto) 58.6 % 38.7-80.0 12/11/2017 6:12/11/2017 7: 01am Lymphocytes (%) (Auto) 28.7 % 18.0-39.1 12/11/2017 6:12/11/2017 7: 01am Monocytes (%) (Auto) 10.7 % 4.4-11.3 12/11/2017 6:12/11/2017 7: 01am Eosinophils (%) (Auto) 1.2 % 0.0-6.0 12/11/2017 6:12/11/2017 7: 01am Basophils (%) (Auto) 0.2 % 0.0-1.0 12/11/2017 6:12/11/2017 7:01am IM GRANULOCYTES % 0.6 % 0.0-1.0 12/11/2017 6:12/11/2017 7:01am Neutrophils # (Auto) 3.0 2.1-6.9 12/11/2017 6:20am 12/11/2017 7:01am Lymphocytes # (Auto) 1.5 1.0-3.2 12/11/2017 6:20am 12/11/2017 7:01am Monocytes # (Auto) 0.5 0.2-0.8 12/11/2017 6:20am 12/11/2017 7:01am Eosinophils # (Auto) 0.1 0.0-0.4 12/11/2017 6:20am 12/11/2017 7:01am Basophils # (Auto) 0.0 0.0-0.1 12/11/2017 6:20am 12/11/2017 7:01am Absolute Immature Granulocyte (auto 0.03 x10e3/uL 0-0.1 12/11/2017 6: 20am 12/11/2017 7:01am Prothrombin Time 14.5 seconds 11.9-14.5 12/09/2017 11:45am 12/09/2017 12:58pm Prothromb Time International Ratio 1.22 12/09/2017 11:45am 2017 12:58pm Oral Anticoagulant Therapy INR Values: 1. Low Intensity Therapy 1.5 - 2.0 2. Moderate Intensity Therapy 2.0 - 3.0 3. High Intensity Therapy(1) 2.5 - 3.5 4. High Intensity Therapy(2) 3.0 - 4.0 5. Panic Value INR > 5.0 Activated Partial Thromboplast Time 30.9 seconds 23.8-35.5 12/09/2017 11 :45am 12/09/2017 12:58pm Urine Color YELLOW YELLOW 12/09/2017 12:00pm 12/09/2017 12:58pm Urine Clarity CLEAR CLEAR 12/09/2017 12:00pm 12/09/2017 12:58pm Urine Specific Tyler 1.015 1.010-1.025 12/09/2017 12:00pm 2017 12:58pm Urine pH 5 5 - 7 12/09/2017 12:00pm 12/09/2017 12:58pm Urine Leukocyte Esterase TRACE H NEGATIVE 12/09/2017 12:00pm 2017 12:58pm Urine Nitrite NEGATIVE NEGATIVE 12/09/2017 12:00pm 12/09/2017 12: 58pm Urine Protein 2+ H NEGATIVE 12/09/2017 12:00pm 12/09/2017 12:58pm Urine Glucose (UA) NEGATIVE NEGATIVE 12/09/2017 12:00pm 12/09/2017 12 :58pm Urine Ketones NEGATIVE NEGATIVE 12/09/2017 12:00pm 12/09/2017 12: 58pm Urine Urobilinogen 0.2 mg/dL 0.2 - 1 12/09/2017 12:00pm 12/09/2017 12: 58pm Urine Bilirubin NEGATIVE NEGATIVE 12/09/2017 12:00pm 12/09/2017 12: 58pm Urine Blood NEGATIVE NEGATIVE 12/09/2017 12:00pm 12/09/2017 12:58pm Urine WBC 11-20 /HPF H 0-5 12/09/2017 12:00pm 12/09/2017 1:25pm Urine RBC 0-5 /HPF 0-5 12/09/2017 12:00pm 12/09/2017 1:25pm Urine Bacteria RARE /HPF NONE 12/09/2017 12:00pm 12/09/2017 1:25pm Urine Epithelial Cells FEW /LPF NONE 12/09/2017 12:00pm 12/09/2017 1: 25pm Urine Renal Epithelial Cells MODERATE H NONE 12/09/2017 12:00pm 2017 1:25pm Urine Hyaline Casts 11-15 H 0-1 12/09/2017 12:00pm 12/09/2017 1:25pm Sodium Level 134 mmol/L L 136-145 12/13/2017 7:08am 12/13/2017 8:04am Potassium Level 4.2 mmol/L 3.5-5.1 12/13/2017 7:08am 12/13/2017 8:04am Chloride Level 100 mmol/L 98-107 12/13/2017 7:08am 12/13/2017 8:04am Carbon Dioxide Level 24 mmol/L 22-29 12/13/2017 7:08am 12/13/2017 8: 04am Anion Gap 14.2 mmol/L 8-16 12/13/2017 7:08am 12/13/2017 8:04am Blood Urea Nitrogen 41 mg/dL H 7-26 12/13/2017 7:08am 12/13/2017 8:04am Creatinine 1.77 mg/dL H 0.57-1.11 12/13/2017 7:08am 12/13/2017 8:04am BUN/Creatinine Ratio 23 6-25 12/13/2017 7:08am 12/13/2017 8:04am Estimat Glomerular Filtration Rate 28 ML/MIN L 60- 12/13/2017 7:08am 8:04am Ranges were taken from the National Kidney Disease Education Program and the National Kidney Foundation literature. Reference ranges: 60 or greater: Normal 16-59 (for 3 consecutive months): Chronic kidney disease 15 or less: Kidney failure Glucose Level 164 mg/dL H 74-118 12/13/2017 7:08am 12/13/2017 8:04am Calcium Level 8.2 mg/dL # L 8.4-10.2 12/13/2017 7:08am 12/13/2017 8:04am VERIFIED PREVIOUS RESULTS Bedside Glucose 274 mg/dL H 70-120 12/13/2017 11:11am 12/13/2017 12: 04pm Meter ID: [id number] Hemoglobin A1c Percent 5.9 % 4.0-7.0 12/10/2017 10:38am 12/10/2017 10: 39am Iron Level 75 ug/dL 50-170 12/11/2017 6:20am 12/11/2017 10:20am Total Iron Binding Capacity 353 ug/dL 261-478 12/11/2017 6:20am 2017 10:20am Percent Iron Saturation 21 % 15-50 12/11/2017 6:20am 12/11/2017 10: 20am Transferrin 252 mg/dL 180-382 12/11/2017 6:20am 12/11/2017 10:20am Total Bilirubin 0.6 mg/dL 0.2-1.2 12/09/2017 11:45am 12/09/2017 12: 41pm Aspartate Amino Transf (AST/SGOT) 158 IU/L H 5-34 12/09/2017 11:45am 09/2018 12:41pm Alanine Aminotransferase (ALT/SGPT) 85 IU/L H 0-55 12/09/2017 11:45am 12:41pm Total Protein 6.6 g/dL 6.5-8.1 12/09/2017 11:45am 12/09/2017 12:41pm Albumin 2.9 g/dL L 3.5-5.0 12/09/2017 11:45am 12/09/2017 12:41pm Globulin 3.7 g/dL H 2.3-3.5 12/09/2017 11:45am 12/09/2017 12:41pm Albumin/Globulin Ratio 0.8 0.8-2.0 12/09/2017 11:45am 12/09/2017 12: 41pm Alkaline Phosphatase 72 IU/L 40-150 12/09/2017 11:45am 12/09/2017 12: 41pm B-Type Natriuretic Peptide 170.0 pg/mL H 0-100 12/09/2017 11:45am 2017 1:31pm Creatine Kinase 37 IU/L 29-168 12/10/2017 6:18am 12/10/2017 7:05am Creatine Kinase MB 1.20 ng/mL 0.00-5.00 12/10/2017 6:18am 12/10/2017 7: 57am Troponin I 0.013 ng/mL 0-0.300 12/10/2017 6:18am 12/10/2017 7:57am Free Thyroxine Index 2.0585 1.4-3.8 12/12/2017 9:00am 12/12/2017 10: 09am Thyroxine (T4) 7.78 ug/dL 4.5-10.9 12/12/2017 9:00am 12/12/2017 10: 09am Our current method for Total T4 is not recommended for use as the only marker for evaluating patients for thyroid disorders. Triiodothyronine (T3) Uptake 26.46 % 22.5-37.0 12/12/2017 9:00am 2017 10:09am Thyroid Stimulating Hormone (TSH) 2.141 uIU/mL 0.350-4.940 12/12/2017 9: 00am 12/12/2017 10:09am Urine Random Microalbumin 483.0 ug/mL Not Estab. 12/09/2017 12:00pm 6:01am Results confirmed on dilution. Performed at: - [address] [id number] Nick Setter: Brenton Kim MD, Phone: [phone] Procedures Procedure Status Date Provider(s) EGD DILATE STRICTURE Completed 06/03/17 ELIZABETH ORANTES MD EGD BIOPSY SINGLE/MULTIPLE Completed 06/06/17 ELIZABETH ORANTES MD X-ray of chest, two views Active 12/10/17 IVANA JUDD MD Encounters Encounter Location Arrival/Admit Date Discharge/Depart Date Attending Provider Discharged Inpatient [facility] 12/12/17 5:47pm 12/13/17 1:07pm ANGELICA MEDRANO MD Registered Surgical Day [facility] 06/06/17 7:34am ELIZABETH ORANTES MD Registered Surgical Day Care [facility] 06/03/17 9:57am ELIZABETH ORANTES MD
--- OUTSIDE RECORDS SUMMARY | 2018-01-01 07:08 | XMS REPORT | Clinical Summary ---
Author Author [facility] Address Unknown Phone Unavailable Care Team Providers Care Rn Sexual Assault Name Role Phone PCP Unavailable Allergies Active [...] (shortness of breath) 04/03/2016 DM (diabetes mellitus) ([facility]) Social History Tobacco Use Types Packs/Day Years Used Date Never Smoker Alcohol Use Drinks/Week oz/Week Comments No Sex Assigned at Date Recorded Not on file Last Filed Vital Signs Not on file Plan of Treatment Not on file Implants Implanted Type Area Master Sonar Technician Device Expiration Model / Identifier Date Serial / Lot Jose MALDONADO 02/11/2017 [id number] Implanted: Qty: 1 on 04/05/2016 SCIENTIFIC 0250 / / [id number] Results Not on fileafter 12/31/2016
[2018-01-01] MEDS ORDERED: IOPAMIDOL 300MG/ML 100 ML INFUS..BTL IV ONE ×2 (07:34→08:16)
[2018-01-01] MEDS ORDERED: IOPAMIDOL 300MG/ML 50ML INFUS..BTL IV ONE (07:35)
[2018-01-01] MEDS ORDERED: HEPARIN SOD (PORCINE) 1000 UNIT/ML 30ML ONE (07:43)
[2018-01-01] MEDS ORDERED: BIVALIRUDIN 250 MG/VIAL IV ONE (08:14)
[2018-01-01] MEDS ORDERED: SODIUM CHLORIDE 0.9% 50ML 50 ML ONE (08:15)
[2018-01-01] MEDS ORDERED: ASPIRIN 81 MG CHEW TAB ONE (08:52)
[2018-01-01] MEDS ORDERED: CLOPIDOGREL BISULFATE 75 MG TAB ONE (08:52)
[2018-01-01] MEDS ORDERED: CLONIDINE HCL 0.1 MG TAB ONE (08:57)
[2018-01-01] MEDS ORDERED: CLINDAMYCIN 600MG/D5W 50ML 50 ML IV ONE (10:00)
--- OUTSIDE RECORDS SUMMARY | 2018-01-01 10:37 | XMS REPORT | Clinical Summary ---
Author Author [facility] Address Unknown Phone Unavailable Care Team Providers Care Screen Printing Inspector Name Role Phone PCP Unavailable Allergies Active [...] (shortness of breath) 04/03/2016 DM (diabetes mellitus) ([facility]) Social History Tobacco Use Types Packs/Day Years Used Date Never Smoker Alcohol Use Drinks/Week oz/Week Comments No Sex Assigned at Date Recorded Not on file Last Filed Vital Signs Not on file Plan of Treatment Not on file Implants Implanted Type Area Substation Engineer Device Expiration Model / Identifier Date Serial / Lot Jose MALDONADO 02/11/2017 [id number] Implanted: Qty: 1 on 04/05/2016 [employer] 0250 / / [id number] Results Not on fileafter 12/31/2016
[2018-01-01] MEDS ORDERED: CLONIDINE HCL 0.1 MG TAB PO PRN ×3 (13:30→17:15)
[2018-01-01] MEDS ORDERED: XANAX 0.25 MG PO SCH (13:45)
[2018-01-01] MEDS ORDERED: ARTIFICIAL TEARS (OPTH) 15 ML BTL OU PRN ×2 (13:45→14:30)
[2018-01-01] MEDS ORDERED: TEARS OP SCH (13:45)
[2018-01-01] MEDS ORDERED: NITROGLYCERIN 0.4 MG SUBL SL PRN (13:45)
[2018-01-01] MEDS ORDERED: PRILOCAINE TOP PRN (13:45)
[2018-01-01] MEDS ORDERED: LIDOCAINE TOP PRN (13:45)
[2018-01-01] MEDS: DICYCLOMINE HCL 20 MG TAB PO SCH ×2 (14:35→20:21)
[2018-01-01] MEDS ORDERED: LIDOCAINE/PRILOCAINE 2.5-2.5% KIT TOP PRN (14:45)
[2018-01-01] MEDS ORDERED: ALPRAZOLAM 0.25 MG TAB PO PRN (14:45)
[2018-01-01] MEDS ORDERED: PANTOPRAZOLE SOD 40 MG TABEC PO SCH (17:00)
[2018-01-01] MEDS: CHOLESTYRAMINE 4 GM PACKET PO SCH ×2 (17:00→17:13)
[2018-01-01] MEDS: METOPROLOL TARTRATE 50 MG TAB PO SCH (17:00)
[2018-01-01] MEDS ORDERED: CHOLESTYRAMINE 4 GM PACKET PO SCH (17:00)
[2018-01-01] MEDS: PANTOPRAZOLE SOD 40 MG TABEC PO SCH (17:13)
[2018-01-01] MEDS: CLONIDINE HCL 0.2 MG TAB PO PRN ×2 (17:22→20:23)
[2018-01-01] MEDS: INSULIN DETEMIR 100 UNIT/ML PEN SQ SCH (17:23)
[2018-01-01] MEDS: CLONIDINE HCL 0.1 MG TAB PO SCH (17:24)
--- NOTE | 2018-01-01 20:03 | Operative Report ---
DATE OF PROCEDURE: January 01, 2018 DIAGNOSES 1. Severe peripheral vascular disease with nonhealing right foot ulcer and abnormal Doppler study of the lower extremities. 2. Diabetes mellitus with diabetic neuropathy. 3. Coronary artery disease status post coronary stenting. 4. Hypertensive cardiovascular disease. 5. Chronic kidney disease. PROCEDURES 1. Abdominal aortography. 2. Right iliofemoral angiography. 3. Angioplasty of right popliteal artery. 4. Left iliofemoral angiography. 5. Angiogram of the left groin area in the left anterior oblique position. ANESTHESIA 1. Moderate sedation with 1 mg of Versed and 25 mcg of fentanyl. 2. Local anesthetic to the left groin area. DESCRIPTION OF PROCEDURE: After the usual prepping and draping, the left inguinal area was infiltrated with local lidocaine. The left femoral artery was then punctured percutaneously, and a 6-Greenlandic arterial sheath was placed in the left femoral artery under modified Seldinger technique. A 5-Greenlandic Omni Flush catheter was then inserted through the sheath and positioned above the renal level for abdominal aortography. The Omni Flush catheter was then withdrawn and positioned at the iliac bifurcation, and a 0.035 Advantage guidewire was then inserted to guide the Omni Flush catheter into the right external iliac artery. The guidewire was then withdrawn, and angiogram of the right iliofemoral artery was performed. After diagnostic evaluation and identifying the stenotic area in the right popliteal artery as seen on previous ultrasound studies, the patient was prepared for peripheral intervention. The Advantage guidewire was reinserted through the Omni Flush catheter and positioned into the right superficial femoral artery. The Omni Flush catheter was then withdrawn, and then the 6-Greenlandic arterial sheath was exchanged to a 6-Greenlandic Jackson crossover sheath, which was advanced into the right external iliac artery under fluoroscopic control. The patient was then started on Angiomax bolus and drip, and angioplasty was performed by advancing a 5 mm x 40 mm Ultraverse balloon catheter across the lesion in the right popliteal artery. Balloon dilatation was then performed at 6 atmospheres for 3 minutes. The balloon catheter was then withdrawn, and a 5-Greenlandic Glidex angiocatheter was inserted over the guidewire and positioned into the distal superficial femoral artery on the right side. After removal of the guidewire, angiogram of the right popliteal and tibioperoneal arteries was performed after the patient received 200 mcg of intra-arterial nitroglycerin. After completion of the angiogram, the angiocatheter was then removed, and the crossover Jackson sheath was withdrawn into the left external iliac artery. Angiogram of the left iliofemoral artery was performed. The left groin angiogram was then also performed in the left anterior oblique position; and since it was not possible to use a closure device, the 6-Greenlandic Jackson sheath was then exchanged to a 7-Greenlandic short arterial sheath, which was sewn into place. A dressing was applied and the patient returned to the observation area. The Angiomax drip was discontinued, and the patient was given 150 mg of Plavix and 81 mg of aspirin. Because of elevated blood pressure, she also received 0.1 mg of clonidine by mouth, and 600 mg of clindamycin was also given intravenously to the patient. The patient tolerated the procedure well. There were no complications, and there was no blood loss. FINDINGS OF ANGIOGRAPHY: The abdominal aortogram showed some minor plaques in the infrarenal abdominal aorta without any evidence of aneurysmal dissection. There also was some mild 30% stenosis at the takeoff of the left main renal artery. The right renal artery was normal as were the celiac access and the superior mesenteric artery. There was about a 20% narrowing involving the left common iliac artery. Otherwise, the iliac arteries appeared to be normal. The superficial femoral artery on the right side showed calcification along the arterial wall with minor plaque formation, but no significant stenosis was noted. The popliteal artery showed a segmental 60% to 70% stenosis. The right anterior tibial artery was normal. There was only 2-vessel runoff, and it is not clear if this was the peroneal artery extending to the posterior tibial artery in a continuous fashion since there was no definite evidence of any collateral circulation or if this second branch was actually the posterior tibial artery and the peroneal artery being absent. However, this branch had multiple stenotic areas ranging from 30 to 60 and further distal showing 2 areas of 95% stenotic areas. However, the LESLEY flow was 3 in this branch. After balloon angioplasty, there was only mild 10% to 20% narrowing in the mid right popliteal artery. However, there was no dissection, and excellent runoff was noted in this area. The femoral arteriogram showed some mild plaque formation in the superficial femoral artery, and there was about a 40% to 50% stenosis of a segmental nature in the left popliteal artery. The situation in the tibioperoneal region was similar to the right only showing a 2-vessel runoff with normal appearance of the anterior tibial artery and again 2 significant areas of 95% stenosis involving the branch and the distribution in the posterior tibial artery area. IMPRESSION 1. Severe stenosis of the right popliteal artery successfully dilated with balloon dilatation with minimal residual stenosis as described above. 2. Mild to moderate severe stenosis of the left popliteal artery. 3. Normal appearance of the anterior tibial artery without any evidence of significant stenosis on either extremity. 4. Severe stenotic areas in multiple locations involving the posterior tibial artery distribution of both lower extremities as described above with normal LESLEY flow 3. RECOMMENDATIONS 1. The patient will continue with 75 mg of Plavix daily and her home medications. Because of her past gastrointestinal symptoms and intolerance to aspirin, she will not be continued on aspirin. 2. If the right foot ulceration continues to be a problem and not healing successfully, additional angioplasty and possible stenting of the posterior tibial artery on the right side will be the next step of peripheral intervention. However, at this time, it was felt not to proceed with additional angiography and lengthy procedure because of the patient's recent more significant renal insufficiency and the risk of contrast nephropathy. This was all explained to the patient and the family. In addition, since the lesion in the popliteal artery involved the knee joint area, no stent was utilized because of the risk of pinching or actually breaking the stent by knee bending. At the end of the procedure, the patient had a pounding right dorsalis pedis pulse 2 to 3+. The foot was warm. Posterior tibial artery pulse could not be palpated on the right. The left dorsalis pedis pulse was palpated being 1 to 2+. Posterior tibial pulse on the left also could not be palpated, but the left foot also was warm. 3. We will follow the patient closely and be in contact with the patient's quality assurance consultant, Dr. Medina. Job#: [id number] CC: DR. MEDINA
[2018-01-02] VITALS (8 sets, daily range): BP systolic 117–220; BP diastolic 58–90
[2018-01-02] MEDS: CLONIDINE HCL 0.1 MG TAB PO SCH ×3 (01:22→12:27)
[2018-01-02] MEDS: CLONIDINE HCL 0.2 MG TAB PO PRN ×2 (04:19→08:12)
[2018-01-02 07:01] LABS: ANION GAP 13.4 mmol/L (8-16); CALCIUM 9.4 mg/dL (8.4-10.2); CREATININE, SERUM 1.18 mg/dL (0.57-1.11); POTASSIUM 4.4 mmol/L (3.5-5.1)
[2018-01-02] MEDS: GLIMEPIRIDE 2 MG TAB PO SCH (07:57)
[2018-01-02] MEDS: DICYCLOMINE HCL 20 MG TAB PO SCH ×3 (08:09→23:19)
[2018-01-02] MEDS: CLOPIDOGREL BISULFATE 75 MG TAB PO SCH (08:10)
[2018-01-02] MEDS: CITALOPRAM HYDROBROMIDE 20 MG TAB PO SCH (08:10)
[2018-01-02] MEDS: PANTOPRAZOLE SOD 40 MG TABEC PO SCH ×2 (08:10→17:55)
[2018-01-02] MEDS: METOPROLOL TARTRATE 50 MG TAB PO SCH ×2 (08:11→17:00)
[2018-01-02] MEDS: VERAPAMIL HCL 180 MG TBER PO SCH (08:11)
[2018-01-02] MEDS: TRAMADOL HCL 50 MG TAB PO SCH (08:12)
[2018-01-02] MEDS ORDERED: NON-FORMULARY MEDICATION (Glimepiride 4 MG) PO SCH (09:00)
[2018-01-02] MEDS: CHOLESTYRAMINE 4 GM PACKET PO SCH ×2 (09:00→17:00)
[2018-01-02] MEDS ORDERED: VERAPAMIL HCL 120 MG TABSR PO SCH (09:00)
[2018-01-02] MEDS ORDERED: HYDRALAZINE HCL 20 MG/ML VIAL IV STA ×2 (09:29→14:00)
[2018-01-02] MEDS ORDERED: HYDRALAZINE HCL 20 MG/ML VIAL IV PRN (18:45)
[2018-01-02] MEDS: INSULIN DETEMIR 100 UNIT/ML PEN SQ SCH (23:20)
[2018-01-03] VITALS: BP 194/82
[2018-01-03] MEDS: INSULIN LISPRO 100 UNIT/1 ML 3ML VIAL SQ SCH ×2 (02:03→06:00)
[2018-01-03 04:00] VITALS: BP 137/60
[2018-01-03] MEDS: GLIMEPIRIDE 2 MG TAB PO SCH (07:54)
[2018-01-03 07:55] LABS: CALCIUM 9.4 mg/dL (8.4-10.2); CREATININE, SERUM 1.33 mg/dL (0.57-1.11); MAGNESIUM 1.4 MG/DL (1.3-2.1)
[2018-01-03 08:00] VITALS: BP 148/66
[2018-01-03] MEDS: DICYCLOMINE HCL 20 MG TAB PO SCH (08:50)
[2018-01-03] MEDS: CLOPIDOGREL BISULFATE 75 MG TAB PO SCH (08:51)
[2018-01-03] MEDS: CITALOPRAM HYDROBROMIDE 20 MG TAB PO SCH (08:51)
[2018-01-03] MEDS: PANTOPRAZOLE SOD 40 MG TABEC PO SCH (08:51)
[2018-01-03] MEDS: CHOLESTYRAMINE 4 GM PACKET PO SCH (08:51)
[2018-01-03] MEDS: VERAPAMIL HCL 180 MG TBER PO SCH (08:51)
[2018-01-03] MEDS: TRAMADOL HCL 50 MG TAB PO SCH (08:51)
[2018-01-03] MEDS: METOPROLOL TARTRATE 50 MG TAB PO SCH (08:52)
[2018-01-03 09:00] VITALS: BP 148/66
[2018-01-03] MEDS ORDERED: CLONIDINE HCL0.1 MG PO (11:22)
[2018-01-03] MEDS ORDERED: MIDODRINE HCL2.5 MG PO (11:23)
== END 2018-01-03 11:55 | disposition home or self-care (01) ==
LOC: CATH LAB 07:06 → IMCU 10:34
PROVIDERS: ADMIT Internal Medicine Cardiovascular Disease; ATTEND Internal Medicine Cardiovascular Disease
DX: E11.51 Type 2 diabetes mellitus with diabetic peripheral angiopathy without gangrene (principal); E11.621 Type 2 diabetes mellitus with foot ulcer; E11.42 Type 2 diabetes mellitus with diabetic polyneuropathy; I25.10 Atherosclerotic heart disease of native coronary artery without angina pectoris; Z95.5 Presence of coronary angioplasty implant and graft; I13.10 Hypertensive heart and chronic kidney disease without heart failure, with stage 1 through stage 4 chronic kidney disease, or unspecified chronic kidney disease; N18.9 Chronic kidney disease, unspecified; I70.203 Unspecified atherosclerosis of native arteries of extremities, bilateral legs; I49.5 Sick sinus syndrome
CPT/HCPCS: 36140; 36415; 75625; 75716; 80048; 82948; 83735; 93005; 96374; 96376; C1766; G0378; J0360; J0583; J1644; J2001; J2250; J7030; Q9967

== ENCOUNTER → 2018-08-19 | Outpatient (CLI) | payer MEDICARE ==
[~2018-08-19] MED LIST changes: -FENTANYL CITRATE/PF 100MCG/2 ML INJ ONE; -HEPARIN SOD/SOD CHLORIDE 1,000 ML ONE; -IOPAMIDOL 300MG/ML 100 ML INFUS..BTL IV ONE; -LIDOCAINE HCL 2% LOCAL 20 ML VIAL ONE; -MIDAZOLAM HCL 2 MG/2 ML VIAL ONE; -SODIUM CHLORIDE 0.9% 1000ML 1,000 ML ONE
--- NOTE | 2018-08-19 17:03 | Diagnostic Imaging Report ---
EXAM: Right upper quadrant abdominal ultrasound INDICATION: Right upper quadrant pain COMPARISON: None. TECHNIQUE: Transverse and longitudinal images of the right upper quadrant abdomen were obtained FINDINGS: Exam somewhat limited by overlying bowel gas. Liver: Size: Measures 11.6 cm in the right midclavicular line Appearance: Increased echogenicity, smooth contour Mass: No focal masses Gallbladder: Status post cholecystectomy. Bile Ducts: Intrahepatic Ducts: No dilatation Extrahepatic Ducts: Common bile duct measures 0.2 cm, no dilatation Pancreas: Obscured by overlying bowel gas. Kidney: The right kidney measures 9.5 cm without evidence of hydronephrosis or stone. The right kidney is echogenic. Vessels: Aorta: Partially obscured by overlying bowel gas. Visualized portion is unremarkable. Inferior Vena Cava: Visualized portions are normal Main Portal Vein: 1.1 cm, normal size with hepatopetal flow. Free Fluid: No ascites. IMPRESSION: Hepatic steatosis. Status post cholecystectomy. Echogenic right kidney, which could reflect medical renal disease. Signed by: Dr. Santi Rodriguez MD on 08/19/2018 5:00 PM
== END ==
LOC: US 15:41
PROVIDERS: ATTEND Internal Medicine Gastroenterology
DX: R74.8 Abnormal levels of other serum enzymes (principal); R94.5 Abnormal results of liver function studies
CPT/HCPCS: 76705

== ENCOUNTER → 2018-09-29 | Outpatient (CLI) | payer MEDICARE ==
[~2018-09-29] MED LIST changes: +FENTANYL CITRATE/PF 100MCG/2 ML INJ ONE; +GELATIN SPONGE 12-7MM ONE; +MIDAZOLAM HCL 2 MG/2 ML VIAL ONE
[2018-09-29 10:26] LABS: INR 0.88; PROTHROMBIN TIME 12.8 seconds (11.9-14.5)
--- NOTE | 2018-09-29 14:46 | Diagnostic Imaging Report ---
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 The patient's heart rate and pulse oximetry were continuously monitored by the interventional radiology nurse. Blood pressure was monitored at 5 minute intervals. Total intraservice time for sedation: 18 minutes Additional Medications: Lidocaine 1% for local anesthesia Estimated blood loss: Less than 5 cc Blood products administered: None Specimens: Core biopsy specimens x3 Implants: None Complications: No immediate Condition at completion: Stable Disposition: Radiology holding area DISCUSSION: Informed consent was obtained and documented in the medical record after discussion of risks and benefits. The patient was placed in the right anterior oblique position on the sonographic table. Preliminary sonographic evaluation confirmed a suitable intercostal percutaneous approach to the right hepatic lobe. The overlying skin was prepped and draped in the standard sterile fashion. 1% lidocaine was infiltrated into the skin and subcutaneous tissues for local anesthesia. Then under continuous sonographic guidance, a 16-gauge needle guide was advanced into the right hepatic lobe. Subsequently, 3 biopsy specimens were obtained using an 18-gauge, 2 cm throw core biopsy apparatus. Specimens were submitted in formalin for histologic analysis. At the conclusion of sampling a small amount of Gelfoam slurry was gently injected through the needle guide at the liver capsule and subcutaneous tissues for augmentation of hemostasis. A sterile dressing was applied. The patient tolerated the procedure well without immediate complication. FINDINGS: Echogenic liver in keeping with steatosis. IMPRESSION: Successful ultrasound-guided core needle biopsies of the right hepatic lobe. Signed by: Dr. Tyron Valles M.D. on 09/29/2018 2:42 PM
== END ==
LOC: US 09:09
PROVIDERS: ATTEND Internal Medicine Gastroenterology
DX: K74.0 Hepatic fibrosis (principal); R94.5 Abnormal results of liver function studies
CPT/HCPCS: 36415; 47000; 76942; 85049; 85610; 85730; 88307; J2250; 88313; 99152